=== PATIENT | female | born 1980 | race Caucasian/White ===

== ENCOUNTER → 2016-08-27 | Outpatient (CLI) | payer OTHER ==
--- NOTE | 2016-08-27 10:26 | DI ---
PELVIC ULTRASOUND, 08/27/2016 8:49 AM Clinical History: Pelvic and perineal pain. Previous Exam: None at this facility. Technique: Transabdominal and transvaginal scans are performed. The uterus measures approximately 35 x 45 x 75 mm and has a normal appearance. The central uterine st ripe measures 2 mm. The right ovary is normal and demonstrates a normal flow. There is a 25 x 40 x 40 mm simple cyst of the left ovary. The left ovary is otherwise unremarkable and demonstrates normal f low. There are no fluid collections or masses. Readin. 25 x 40 x 40 mm simple cyst of the left ovary. The ovaries are otherwise normal. 2. The uterus is normal.
--- NOTE | 2016-08-27 10:57 | DI ---
GALLBLADDER AND LIVER ULTRASOUND, 08/27/2016 8:49 AM: Clinical History: Right upper quadrant pain. Previous Exam: None at this facility. Technique: Scans are performed through the right upper quadrant in multiple projections. The patient was rolled from side to side and the gallbladder was balloted with the probe to facilitate visualizat ion of small gallstones. The gallbladder is well distended and has a normal wall thickness. There are no gallstones. The commo n bile duct measures 3 mm. The pancreas is visualized from the head to the body and is normal. The li kanika has a well-circumscribed hyperechoic and slightly inhomogeneous 20 mm lesion in the posterior and inferior margin of the left lobe of the liver. Color Doppler ultrasound shows flow within this lesio n and the appearance is consistent with a benign cavernous hemangioma. The remainder of the liver is normal. The right kidney, IVC, and aorta are normal. Readin. Normal gallbladder ultrasound. 2. 20 mm benign cavernous hemangioma in the left lobe of the liver. The liver is otherwise normal. 3. The right kidney, IVC, aorta, and pancreas are normal.
== END ==
LOC: US 08:44
PROVIDERS: ATTEND Family Medicine
DX: R10.2 Pelvic and perineal pain (principal); R10.11 Right upper quadrant pain; D18.09 Hemangioma of other sites; N83.202 Unspecified ovarian cyst, left side
CPT/HCPCS: 76705; 76830

== ENCOUNTER → 2016-10-24 | Outpatient (CLI) | payer OTHER ==
--- NOTE | 2016-10-30 14:34 | HOLTER ---
[facility] [place] Interpretive Statements Forty eight hour holter done for palpitations, chest pain and shortness of breath. Forty five hours analysed. There were 023706 beats with [id number] normal beats. The average sinus rate was 73 with maximum sinus rate of 113 at 10 PM and minimum rate of 43. There were 11 singlet PVCs and 51 PACs with 34 singlets, 2 pairs and 3 runs with maximum rate at 135 up to 10 beats. Patient had frequent symptoms of chest and neck pain with shortness of breath while in sinus rhythm with some feelings of fluttering but no dizzyness or syncopy with some of the SVT. No significant pauses or diagnostic ST-T wave abnormalities noted. IMP: Abnormal holter study with occassional PACs and VPCs and several brief runs of 4-10 beat SVT with rates to 135. Occassional fluttering in chest noted with SVT. The majority of symptoms of chest and neck pain and shortness of breath occurred in sinus rhythm with no ST-T wave changes. Electronically Signed On 10-30-16 16:11:17 MDT by Sp Casiano [email or web address]
== END ==
LOC: RT 15:49
PROVIDERS: ATTEND Family Medicine
DX: I47.1 Supraventricular tachycardia (principal)
CPT/HCPCS: 93225; 93226; 93227

== ENCOUNTER 2017-09-14 17:44 | Observation (INO) ==
[2017-09-14 18:57] LABS: BASOPHILS # (AUTO) 0.03 10*3/UL; BASOPHILS % (AUTO) 0.3 % (0-1); EOSINOPHILS # (AUTO) 0.11 10*3/UL; EOSINOPHILS % (AUTO) 1.2 % (0-8); Hematocrit [HCT] 38.3 % (37.0-47.0); Hemoglobin [HGB] 12.7 g/dL (12.0-16.0); LYMPHOCYTES # (AUTO) 2.93 10*3/uL; MEAN CORPUSCULAR HEMOGLOBIN 30.2 PG (27-31); MEAN CORPUSCULAR HGB CONC 33.2 g/dL (33-37); MEAN PLATELET VOLUME 9.8 FL (7.4-12.2); MONOCYTES # (AUTO) 0.73 10*3/UL (0.3-0.8); MONOCYTES % (AUTO) 7.6 % (5-15); NEUTROPHILS # (AUTO) 5.74 10*3/UL; NEUTROPHILS % (AUTO) 60.1 % (50-80); PLATELET MORPHOLOGY COMMENT NORMAL MORPHOLOGY (NORM); RBC MORPHOLOGY COMMENT NORMAL MORPHOLOGY (NORM); RED BLOOD COUNT 4.21 10^6/uL (4.20-5.40); WBC MORPHOLOGY COMMENT NORMAL MORPHOLOGY (NORM)
--- NOTE | 2017-09-14 19:03 | DI ---
EXAM: XR Chest, 2 Views CLINICAL HISTORY: ITS.REASON PNEUMOTHORAX Physician Notes: Tech Comments: TECHNIQUE: Frontal and lateral views of the chest. COMPARISON: No relevant prior studies available. FINDINGS: Lungs/pleural space: Right pneumothorax, estimated at 14%. This is despite a right-sided chest tube with the tip to the medial-anterior right hemithorax. Pulmonary hyperexpansion.. Heart: Unremarkable. No cardiomegaly. Mediastinum: Unremarkable. Bones/joints: Unremarkable. Breast implants IMPRESSION: Right pneumothorax, estimated at 14%, despite a right-sided chest tube. [employer] 09/14/17 19:10 Verify Receipt Verified receipt with Dr. Mendez Lombardi on 09/14 19:10 (-06:00)
[2017-09-14 19:08] LABS: BLOOD UREA NITROGEN 11 mg/dL (7-22); BUN/CREATININE RATIO 12.22 (6-20); SERUM ALBUMIN 4.4 g/dL (3.5-4.8)
--- NOTE | 2017-09-14 20:28 | DI ---
EXAM: CT Angiography Chest With Intravenous Contrast CLINICAL HISTORY: ITS.REASON right sided chest pain; recent breast reconstructi Physician Notes: Tech Comments: TECHNIQUE: Axial computed tomographic angiography images of the chest with intravenous contrast using pulmonary embolism protocol. MIP reconstructed images were created and reviewed. COMPARISON: Chest radiographs of same date. FINDINGS: As noted radiographically, there is a right apical pneumothorax. However, based on CT, I would estimate that this is less than 5%. The small caliber chest tube again terminates at the medial right apex, anteriorly. There are trace bilateral pleural effusions. Mild associated atelectasis. No acute pulmonary infiltrate. Operative changes of the rightward chest wall with breast implant, consistent with provided history. There is a left-sided implant is well. There is no pulmonary embolism. No aortic dissection. No fracture or other acute osseous abnormality. IMPRESSION: Operative changes of the chest wall, consistent with history. No PE. Right sided chest tube with small apical pneumothorax. This was overestimated based on radiographs. It is likely less than 5%. Trace pleural effusions and mild atelectasis.
--- NOTE | 2017-09-14 20:59 | PDOC ---
Chest Pain HPI - General Chief Complaint: Dyspnea Stated Complaint: DIFFICULTY BREATHING/CHEST TUBE Date Seen by Provider: 09/14/17 Time Seen by Provider: 17:50 Source: Patient, Spouse Exam Limitations: POSITIVE: No limitations Treatment Prior to Arrival: REPORTS: None Nurse's Notes Reviewed & Considered: Yes - History of Present Illness Initial Comments: The patient is a 37-year-old female. She presents to the emergency room complaining of chest pain, pleuritic in nature, on the right which began this afternoon. Past medical history is significant in that on 6-year-old she had some reconstructive breast surgery. This was done in [facility]. She was discharged from the hospital in [place] but then returned to the [place] emergency room later on that day because of the development of pleuritic chest pain and a sensation of shortness of breath, very much like what she has experienced today. She was diagnosed as having a pneumothorax on the right. A thoracostomy tube consisting of a thin pigtail tube with a flutter valve was placed. She returned home to [place] yesterday. She states she had the surgical removal of a benign breast mass in her right breast in April. She has been taking hydrocodone/APAP, 5/325 for postoperative pain. She is also on some type of antibiotic postoperatively. She describes her chest pain as "sharp" and is present mostly medial to the right scapula and medial to the right breast. She states that she is scheduled for reevaluation by her surgeon in [place] . No fevers or chills. No cough. Body Location Affected: REPORTS: Chest Timing: REPORTS: Abrupt Duration: <24 hours Severity: Moderate Persistent/Worse since (date): 09/14/17 Persistent/Worse since (time): 14:00 Context: REPORTS: Other (As above) Quality: REPORTS: "Pain", Sharpness, Stabbing Radiation: REPORTS: None Associated Symptoms: REPORTS: Shortness of Breath, Hurts to Breathe Modifying Factors: improves with: Deep breathing Similar Symptoms Previously: Yes (2 days ago postoperatively, as above) Recently seen/treated/hospitalized: Yes (as above) Any Prior Injuries Related to Current Complaint?: No - Patient Home Medications Home Medications: Home Medications Bupropion HCl [Wellbutrin Sr] 100 mg PO DAILY 09/14/17 Hydrocodone/Acetaminophen [Hydrocodon-Acetaminophen 5-325] 1 ea PO Q4HR PRN 12/24 Norgestimate-Ethinyl Estradiol [Sprintec] 1 ea PO DAILY 09/14/17 - Patient Allergies Allergies/Adverse Reactions: Allergies 3 Allergy/AdvReac Type Severity Reaction Status Date / Time codeine Allergy Anaphylaxis Verified 09/14/17 17:55 Past Medical History - heen HEENT History: Denies History Cardiovascular History: Denies History Respiratory History: Other (please comment) Additional Respiratory History: COLLAPSED LUNG S/P RIGHT BREAST RECONSTRUCTION ON 09/12/2017 WITH CHEST TUBE PLACEMENT Gastrointestinal History: Denies History Genitourinary History: Denies History Endocrine History: Denies History Musculoskeletal History: Denies History Prosthesis or Implant: No Neurological History: Denies History Blood Disorders: Denies History Psychiatric History: Depression History of Sexually Transmitted Diseases: No Female Reproductive History: Denies History LMP: 08/31/2017 Cancer History: Denies History In Past Year Been Physically Harmed or Verbally Threatened: No (PER PATIENT) History of MDRO: No History of Other Communicable Diseases: No Tobacco Use: Never Smoker In the Past 12 Months, Have Used or Abuse Any Substance: None Previous Surgical History: Yes Type / Date of Surgery: RIGHT BREAST RECONSTRUCTION S/P NON-CANCEROUS MASS REMOVAL Anesthesia Reactions: No Malignant Hyperthermia: No Family History of Malignant Hyperthermia: No Significant Family History: No pertinent family hx Past Medical History Reviewed: Reviewed - No Changes ROS - Limitations ROS Limitations: No Limitations Constitution: REPORTS: Denies Symptoms Cardiovascular: REPORTS: Chest Pain (Pleuritic right sided chest pain as above) Respiratory: REPORTS: Hurts To Breathe, Shortness Of Breath Neurological: REPORTS: Denies Neuro Symptoms Gastrointestinal: REPORTS: Denies GI Symptoms Endocrine: REPORTS: Denies Symptoms Musculoskeletal: REPORTS: Denies MS Symptoms Genitourinary: REPORTS: Denies Symptoms Eyes: REPORTS: Denies Symptoms ENT: REPORTS: Denies Symptoms Skin: REPORTS: Denies Skin Symptoms Lympathic: REPORTS: Denies Lympathic Symptoms Immunologic: POSITIVE: Denies Symptoms Psychiatric: POSITIVE: Denies Psych Symptoms Chest Pain PE - General Appearance General Appearance: REPORTS: Alert, Cooperative, No Acute Distress, No Evidence of Trauma - HEENT HEENT: POSITIVE: Head Inspection Nml, Eyes Inspection Nml, Ears Inspection Nml, Nose Inspection Nml, Oral/Dental Inspect. Nml, Pharynx Inspect. Nml, PERRL, EOMI - Neck Neck: REPORTS: Normal Inspection, No Carotid Bruit - Respiratory Respiratory: REPORTS: No Respiratory Distress, Breath Sounds Normal, Chest Non- Tender, Other (Mildly tachypneic at 19/m. Oxygen saturation on room air 94%) - Cardiovascular Cardiovascular: REPORTS: Regular Rate and Rhythm, Heart Sounds Normal, Equal Pulses, Strong Pulses, No Murmur, No Gallop, No Friction Rub, No JVD Peripheral Pulses: Radial (R): 2+, Radial (L): 2+ - Abdomen Abdomen: Soft: (All Quadrants), Normal Bowel Sounds: (All Quadrants), Denies Tenderness: (All Quadrants), No Splenomegaly: (All Quadrants), No Hepatomegaly: (All Quadrants), No Guarding: (All Quadrants), No Rebound: (All Quadrants), No Palpable Pulse: (All Quadrants), No Palpabale Mass: (All Quadrants), No Distention: (All Quadrants), No Rigidity: (All Quadrants) - Skin Skin: REPORTS: Intact, Normal For Race, Warm, Dry, No Rash - Extremities Extremity: Non-Tender: (All Extremities), Normal ROM: (All Extremities), Normal Inspection: (All Extremities) - Neurological / Psychological Neurological: POSITIVE: Affect Apporpriate, Oriented X3, aws developer Normal As Tested, Motor Normal, Sensation Normal Images - Complete Complete: 1 - Area described pleuritic chest pain 2 - Area of described a pleuritic chest pain Chest Pain Progress - Results Reviewed by me Xrays/CTs/US Reviewed by me: Yes Discussed with Radiologist: Yes Radiology Findings: Chest x-ray read by radiologist as showing a right sided 14 % pneumothorax. No diameter thoracostomy tube identified. CTA of the chest shows no pulmonary emboli; on CT scan of the chest the pneumothorax is interpreted as being "less than 5% pneumothorax ". No pleural effusions or infiltrates. Lab Results Reviewed by Me: Yes (hCG negative) CBC and BMP: 09/14/17 18:37 09/14/17 18:50 - Patient's Progress Pain Medication Addressed: POSITIVE: Yes (Patient given hydrocodone/APAP 1 in ER from her supply.) School/Work Release Addressed: POSITIVE: Not Applicable Re-Examine Time: 20:15 Re-Examine Comment: Results of chest x-ray, chest CTA and blood work reviewed. Case discussed with Dr. Holder, surgeon agronomy supervisor. He does not feel it is indicated, given the small size of the pneumothorax, to do another tube thoracostomy at this time. He did recommend, however, admission for observation and repeat chest x-ray overnight. Case then discussed with hospitalist on-call, Dr. Lopez, who admit the patient for further observation with consultation to Dr. Holder. Status: POSITIVE: Unchanged, Re-Examined - Consult Consult (If Yes, Name of Consulting MD & Time Called): Yes (Dr. Holder, 2029; Dr. Lopez, 2044) Consulting MD will see pt:: POSITIVE: [facility] Admit Counseled: POSITIVE: Patient, Family (), RE: Lab Results, RE: Radiology Results, RE: DX, RE: Need for F/U Patient Care Time - Estimated PCT Patient Care Time (In Minutes): 60 Vital Signs - Recent Vital Signs Vital Signs: Vital Signs (Last 8 hours) Temp Pulse Resp BP Pulse Ox 09/14/17 17:44 96.8 F 82 19 119/79 100 - VS Reviewed Vital Signs Reviewed: Yes Discharge Clinical Impression: Pneumothorax Discharge Disposition: Admit to Inpatient Condition: Fair Follow Up With: ARNOLD HENRY [Primary Care Provider] - Date Decision to Admit to Inpatient: 09/14/17 Time Decision to Admit to Inpatient: 20:15
[2017-09-14] MEDS ORDERED: ONDANSETRON 4 MG/2 ML VIAL IVP PRN ×2 (21:14→21:59)
[2017-09-14] MEDS: KETOROLAC 15 MG/1 ML VIAL IVP PRN (21:36)
[2017-09-14 21:39] VITALS: RESP 18
[2017-09-14] MEDS ORDERED: MORPHINE SULFATE 4 MG/1 ML IVP PRN ×2 (21:45→23:27)
[2017-09-14] MEDS ORDERED: MORPHINE SULFATE 2 MG/1 ML IVP PRN (21:46)
[2017-09-14] MEDS ORDERED: HYDROcodone-APAP 5 MG -325 MG TABLET PO PRN (21:59)
[2017-09-14] MEDS ORDERED: LIDOCAINE W/ SODIUM BICARB 0.5 ML SYR SUBD PRN (21:59)
[2017-09-14] MEDS ORDERED: ACETAMINOPHEN 325 MG TABLET PO PRN (21:59)
[2017-09-14] MEDS ORDERED: CALCIUM CARBONATE 500 MG (TUMS) CHEWABLE TABLET PO PRN (21:59)
[2017-09-14] MEDS ORDERED: DOCUSATE 100 MG CAPSULE PO PRN (21:59)
--- NOTE | 2017-09-14 22:18 | PDOC ---
HPI - History of Present Illness Date of Service: 09/14/17 Time of Service: 22:11 Chief Complaint: Chest pain History of Present Illness: This very pleasant 37-year-old female with a history of a breast lump that was noted in April. She had a lumpectomy at that time and they did not have clean margins so they repeated it due to abnormal pathology although it was not cancer. After the second lumpectomy was done, the patient opted for revision. She had breast surgery on September 11 in [place] and stayed overnight in [place]. On the , she had sudden onset of pain and went to the emergency room in [place]. She had a complete pneumothorax on the right side, and chest tube was placed with what looks like a Heimlich valve at the end of it. The chest tube was imaged tonight on chest x-ray and on CT scan and is up in the apex. The patient states that she felt much better after the chest tube was placed and she stayed overnight in [place] on the and then went home to [facility] on the . On the night of September 13, patient started having some increasing pain with deep breathing and coughing and some shoulder pain on the right side. She states that the pain gradually continued to get worse today and on the way back from picking up a new trailer in [place], the patient stopped here for evaluation as the pain was too much to bear. She was on hydrocodone, 5-325, but that did not control the pain. In the emergency room , she had a chest x-ray that showed a 14% pneumothorax despite the chest tube. A CT scan was done as there was thought that she might have a pulmonary emboli and my discussion with the emergency room physician, but was negative for pulmonary emboli and what it showed was a 5% pneumothorax. There were signs consistent with breast surgery. The patient's plastic surgeon knows about this , and told the patient that she thought she might have caused a pneumothorax when she gave local anesthesia as her procedure was ending. The patient is never had anything like this happen before. She states the pain does get worse when she coughs. Morphine definitely helped the pain in [place] when she had the initial pneumothorax. She states that it's helped here and within about 15 minutes of 2 mg of morphine, her pain went from an 8 to a 5. She's not had any fevers, chills, or cough. She does not smoke. I spoke with her surgeon, Dr. Holder, and detailed the salient points of the above history, and he stated that the best way to manage this would be to try and get better pain control for the patient. He recommended we recheck the pneumothorax with a chest x-ray in the morning. If pain is well controlled, he suggested that we would be able to discharge the patient home with continued pain management with oral medications and have the patient follow with her surgeon in [place]. If the pneumothorax looks worse, he asked for us to give a call. Past Medical History Medical History: 1. Breast lump, abnormal pathology but not cancer, status post lumpectomy 2 Surgical History: 1. Breast lumpectomy 2. 2. Breast reconstruction/implants on 09/11/2017 Pertinent Family History: There is no family history of diabetes, heart disease or cancer Past Social History: Patient does not smoke or drink. She is . Has 2 children that are described as healthy. Lives in [facility]. Tobacco Use: Never Smoker In the Past 12 Months, Have Used or Abuse Any of the Following Substance: None Alcohol Use: None Medication / Allergies Home Medications: Home Medications 3 Medication Instructions Recorded Confirmed Type Bupropion HCl [Wellbutrin Sr] 100 mg PO DAILY 09/14/17 09/14/17 History Hydrocodone/Acetaminophen 1 ea PO Q4HR PRN 09/14/17 09/14/17 History [Hydrocodon-Acetaminophen 5-325] Norgestimate-Ethinyl Estradiol 1 ea PO DAILY 09/14/17 09/14/17 History [Sprintec] Allergies/Adverse Reactions: Allergies 3 Allergy/AdvReac Type Severity Reaction Status Date / Time codeine Allergy Anaphylaxis Verified 09/14/17 21:25 Review of Systems - Review of Systems All Systems: Reviewed & No Additional Complaints Except as Stated (I did a 12 point review systems and other than that discussed in history present illness, the review systems is negative.) Exam - Vitals Vital Signs: Vital Signs Temperature 97.8 F Temperature Source Temporal Artery Scan Pulse Rate [Pulse Oximeter] 64 Respiratory Rate 18 Blood Pressure [Left Arm] 107/46 Pulse Ox 99 Oxygen Flow Rate 4 Oxygen Delivery Method Room Air Height 5 ft 9 in Weight 132 lb 12.8 oz - General General Appearance: No Acute Distress, Cooperative - Head Head Exam: Normal Inspection, Normocephalic, Atraumatic - Eye Eye Exam: POSITIVE: No Scleral Icterus - ENT ENT Exam: POSITIVE: Mucous Membranes Moist - Neck Neck Exam: Normal Inspection, JVP is not Raised - Respiratory Respiratory Exam: POSITIVE: Clear to Auscultation - Bilaterally, Breathing Non Labored, Normal To Percussion Additional Respiratory Exam Details: There is a chest tube that is inserted mid chest region with a dressing that is clean, dry, intact. - Cardiovascular Cardiovascular Exam: POSITIVE: RRR, No Murmur, No Clicks, No Gallops, No Rubs, No JVD - GI/Abdominal GI/Abdominal Exam: POSITIVE: Normal Bowel Sounds, Non Tender, Non Distended, Soft - Rectal Rectal Exam: POSITIVE: Deferred - External Exam: POSITIVE: Deferred Exam: POSITIVE: Deferred - Extremities Extremities Exam: POSITIVE: No Clubbing Present, No Edema Present, No Cyanosis Present - Neurological Neurological Exam: POSITIVE: Alert, Oriented x 3, No Facial Droop, Speech Intact / Clear, Moves All Extremities Equally - Psychiatric Psychiatric Exam: POSITIVE: Normal Affect, Normal Mood Results - Labs CBC and BMP: 09/14/17 18:37 09/14/17 18:50 Additional Lab Results: Laboratory Results 09/14/17 09/14/17 09/14/17 Range/Units 18:37 18:50 18:55 WBC 9.56 (4.8-10.8) 10^3/uL RBC 4.21 (4.20-5.40) 10^6/uL Hgb 12.7 (12.0-16.0) g/dL Hct 38.3 (37.0-47.0) % MCV 91.0 (81-99) FL MCH 30.2 (27-31) PG MCHC 33.2 (33-37) g/dL RDW Std Deviation 40.9 (39-50) fL RDW Coeff of Joya 12.5 (11.5-14.5) % Plt Count 298 (140-350) 10*3/uL MPV 9.8 (7.4-12.2) FL Immature Gran % (Auto) 0.2 (0-5) % Neut % (Auto) 60.1 (50-80) % Lymph % (Auto) 30.6 (10-50) % [place] % (Auto) 7.6 (5-15) % Eos % (Auto) 1.2 (0-8) % Baso % (Auto) 0.3 (0-1) % Immature Gran # (Auto) 0.02 10*3/UL Neut # (Auto) 5.74 10*3/UL Lymph # (Auto) 2.93 10*3/uL [place] # (Auto) 0.73 (0.3-0.8) 10*3/UL Eos # (Auto) 0.11 10*3/UL Baso # (Auto) 0.03 10*3/UL WBC Morphology Comment Normal morphology (NORM) Plt Morphology Comment Normal morphology (NORM) RBC Morph Comment Normal morphology (NORM) Sodium 138 (135-145) meq/L Potassium 3.7 L (3.8-5.2) meq/L Chloride 98 (98-112) meq/L Carbon Dioxide 28 (23-33) meq/L Anion Gap 12 (5-20) BUN 11 (7-22) mg/dL Creatinine 0.9 (0.50-1.20) mg/dL Estimated GFR > 60 (>60 ml/min/1.73m(2)) BUN/Creatinine Ratio 12.22 (6-20) Glucose 108 (78-110) mg/dL Calculated Osmolality 285.0 (267-292) mOsm/kg Calcium 9.1 (8.7-10.7) mg/dL Total Bilirubin 0.4 (0.3-1.2) mg/dL AST 33 (8-39) IU/L ALT 25 (9-52) IU/L Alkaline Phosphatase 66 (38-126) IU/L Total Protein 7.9 (6.1-8.0) g/dL Albumin 4.4 (3.5-4.8) g/dL Globulin 3.5 (2.50-4.10) g/dL Albumin/Globulin Ratio 1.20 L (1.3-2.0) mg/g Serum HCG, Qual Negative - Imaging Status: Image Reviewed by Me (Chest x-ray, on my view, shows a chest tube that appears in the correct location, it is a small diameter tube that appears to be in the right apex. There is a small pneumothorax present. Chest CT scan shows a small pneumothorax. The implants can be seen as well.) Assessment and Plan - Patient Problems (1) Iatrogenic pneumothorax Current Visit: Yes Status: Acute Code(s): J95.811 - Postprocedural pneumothorax (2) Pleuritic chest pain Current Visit: Yes Status: Acute Code(s): R07.81 - Pleurodynia (3) History of breast surgery Current Visit: Yes Status: Acute Code(s): Z98.890 - Other specified postprocedural states - Assessment / Plan Additional Assessment/Plan Details: Given the small nature of this pneumothorax, I think we can admit the patient for pain control, is clear that she is in pain on examination and I actually had to give her morphine before I could examine her because I felt she was in a lot of pain. I did speak with Dr. Holder as mentioned in the history of present illness. The plan at this point will be to try to improve pain control, get the patient on an oral pill that will control pain, and hopefully be able to discharge the patient so that her surgeon in [place] can reevaluate the chest tube because planned. The patient stated she had follow-up with him on the September. I will go ahead and check a chest x-ray in the morning to make sure that the pneumothorax is no worse. If the pneumothorax is worse, we may need to consider consulting surgery at that point to place this on suction, and would need help managing that, but at this point, there is no need to put this on suction. Oxygen to keep saturations 5. Incentive spirometry. Telemetry and pulse ox monitoring. Spoke with the patient about this plan, and the patient agreed.
[2017-09-14] MEDS ORDERED: MORPHINE SULFATE 2 MG/1 ML IVP ONE (23:26)
[2017-09-14] MEDS: oxyCODONE-ACETAMINOPHEN 5-325 TAB PO PRN (23:28)
[2017-09-15] MEDS: KETOROLAC 15 MG/1 ML VIAL IVP PRN (04:09)
[2017-09-15] MEDS: oxyCODONE-ACETAMINOPHEN 5-325 TAB PO PRN ×2 (04:09→08:00)
[2017-09-15 07:03] VITALS: BP 101/57; TEMP 97.9
--- NOTE | 2017-09-15 08:00 | DI ---
EXAM: XR Chest, 1 View CLINICAL HISTORY: Its. reason recheck pneumothorax Physician Notes: Tech Comments: TECHNIQUE: Frontal view of the chest. COMPARISON: Chest x-ray from 09/14/2017 FINDINGS: Lungs: There is a small right apical pneumothorax, without significant change. The lungs remain clear bilaterally. Pleural space: See above. Heart: Unremarkable. No cardiomegaly. Mediastinum: Unremarkable. Bones/joints: Unremarkable. Tubes, lines and devices: A right chest tube is unchanged in position with the tip at the anterior medial aspect of the right lung apex. IMPRESSION: Small right apical pneumothorax, without change. The right chest tube is also unchanged in position.
[2017-09-15] MEDS ORDERED: NORGESTIMATE ETHINYL ESTRADIOL PO SCH (09:00)
--- NOTE | 2017-09-15 09:26 | DCSUMMARY ---
Hospitalization Summary Admit Date: 09/14/2017 Discharge Date: 09/15/17 Hospital Course: Discharge diagnosis 1. Pleuritic pain improved 2. Iatrogenic pneumothorax status post chest tube insertion on the seventh, no change in the size of the pneumothorax 3. Status post breast implant surgery 4. Breast lumpectomy Hospital course This is a 37 years old female with medical history significant for history of breast lump for which she had lumpectomy, after the first surgery apparently the margins were not clear so she had another lumpectomy she decided to have reconstructive surgery and had that done in [place] on the she stayed overnight. on the seventh she had sudden onset of chest pain went to the emergency department in [place] she was found to have pneumothorax on the right side had a chest tube inserted with what looks like a helmich valve at the end of it. Was discharged home but yesterday pain got worse and because of that she came into the ER a chest x-ray was initially read as 14% pneumothorax despite the chest tube however a CT scan done showed no PE and very small pneumothorax probably less than 5%. Because of the pain she was admitted under observation. Today she is feeling better her pain may be 3 out of 10. She said the Percocet seemed to help her pain more than the hydrocodone. she got some Percocet earlier. She is denying shortness of breath. She had the chest tube with helmich valve at the end on the right side. Lungs are clear. Chest x-ray showed no change in the size of the pneumothorax. To me it looks small. Since she's been stable we thought that we can discharge her home on oral pain medication but switching to the Percocet instead of the hydrocodone and follow- up with her surgeon as scheduled on . Dr. Lopez last night spoke with the surgeon Dr. Holder and the plan is to keep the tube in place. We did checked her saturation saturation remained stable off the Oxygen at 98%. Laboratory Results 09/14/17 09/14/17 09/14/17 Range/Units 18:37 18:50 18:55 WBC 9.56 (4.8-10.8) 10^3/uL RBC 4.21 (4.20-5.40) 10^6/uL Hgb 12.7 (12.0-16.0) g/dL Hct 38.3 (37.0-47.0) % MCV 91.0 (81-99) FL MCH 30.2 (27-31) PG MCHC 33.2 (33-37) g/dL RDW Std Deviation 40.9 (39-50) fL RDW Coeff of Joya 12.5 (11.5-14.5) % Plt Count 298 (140-350) 10*3/uL MPV 9.8 (7.4-12.2) FL Immature Gran % (Auto) 0.2 (0-5) % Neut % (Auto) 60.1 (50-80) % Lymph % (Auto) 30.6 (10-50) % [place] % (Auto) 7.6 (5-15) % Eos % (Auto) 1.2 (0-8) % Baso % (Auto) 0.3 (0-1) % Immature Gran # (Auto) 0.02 10*3/UL Neut # (Auto) 5.74 10*3/UL Lymph # (Auto) 2.93 10*3/uL [place] # (Auto) 0.73 (0.3-0.8) 10*3/UL Eos # (Auto) 0.11 10*3/UL Baso # (Auto) 0.03 10*3/UL WBC Morphology Comment Normal morphology (NORM) Plt Morphology Comment Normal morphology (NORM) RBC Morph Comment Normal morphology (NORM) Sodium 138 (135-145) meq/L Potassium 3.7 L (3.8-5.2) meq/L Chloride 98 (98-112) meq/L Carbon Dioxide 28 (23-33) meq/L Anion Gap 12 (5-20) BUN 11 (7-22) mg/dL Creatinine 0.9 (0.50-1.20) mg/dL Estimated GFR > 60 (>60 ml/min/1.73m(2)) BUN/Creatinine Ratio 12.22 (6-20) Glucose 108 (78-110) mg/dL Calculated Osmolality 285.0 (267-292) mOsm/kg Calcium 9.1 (8.7-10.7) mg/dL Total Bilirubin 0.4 (0.3-1.2) mg/dL AST 33 (8-39) IU/L ALT 25 (9-52) IU/L Alkaline Phosphatase 66 (38-126) IU/L Total Protein 7.9 (6.1-8.0) g/dL Albumin 4.4 (3.5-4.8) g/dL Globulin 3.5 (2.50-4.10) g/dL Albumin/Globulin Ratio 1.20 L (1.3-2.0) mg/g Serum HCG, Qual Negative Discharge suction Diet regular Activity as started Medications Current Medication(s) 3 Medication Instructions Recorded Confirmed Type Bupropion HCl [Wellbutrin Sr] 100 mg PO DAILY 09/14/17 09/14/17 History Norgestimate-Ethinyl Estradiol 1 ea PO DAILY 09/14/17 09/14/17 History [Sprintec 28 Day Tablet] oxyCODONE/APAP 5/325 Tab 1 - 2 tab PO Q4H PRN #30 tab 09/15/17 Rx [Percocet 5/325 Tab] Follow-up with PCP next week, with the surgeon as scheduled on the Condition at discharge was stable for discharge Exam - Vitals Vital Signs: Vital Signs Temperature 97.9 F Temperature Source Temporal Artery Scan Pulse Rate [Pulse Oximeter] 57 Pulse Rate 59 Respiratory Rate 18 Blood Pressure [Left Arm] 101/57 Pulse Ox 100 Oxygen Flow Rate 4 Oxygen Delivery Method Nasal Cannula Height 5 ft 9 in Weight 132 lb 12 oz - General General Appearance: No Acute Distress, Cooperative, Thin - Head Head Exam: Normal Inspection - Eye Eye Exam: POSITIVE: Normal Appearance - ENT ENT Exam: POSITIVE: Normal Exam - Neck Neck Exam: Normal Inspection - Respiratory Respiratory Exam: POSITIVE: Clear to Auscultation - Bilaterally Additional Respiratory Exam Details: Chest the tube on the right side with what it looks like Arnaldo valve. - Cardiovascular Cardiovascular Exam: POSITIVE: RRR - GI/Abdominal GI/Abdominal Exam: POSITIVE: Normal Bowel Sounds, Non Tender, Non Distended, Soft, No Organomegaly - Rectal Rectal Exam: POSITIVE: Deferred - External Exam: POSITIVE: Deferred - Extremities Extremities Exam: POSITIVE: Normal Inspection - Back Back Exam: POSITIVE: Normal Inspection - Neurological Neurological Exam: POSITIVE: Alert, Oriented x 3, CN II-XII Intact, No Facial Droop, Speech Intact / Clear, Moves All Extremities Equally - Psychiatric Psychiatric Exam: POSITIVE: Normal Affect - Integumentary Integumentary Exam: POSITIVE: Normal Color
[2017-09-15 09:56] VITALS: O2SAT 98
== END 2017-09-15 10:28 | disposition home or self-care (01) ==
LOC: ER 17:44 → MED/SURG 17:44
PROVIDERS: ADMIT Family Medicine; ATTEND Family Medicine